=== PATIENT | female | born 1985 | race African-American/Black ===

== ENCOUNTER 2022-05-13 01:27 | Emergency (ER) | payer MEDICAID ==
[~2022-05-13] VITALS: Ht 162.6 cm; Wt 70.0 kg
[2022-05-13] MEDS ORDERED: IBUPROFEN 600MG TABLET PO ONE (02:00)
[2022-05-13] MEDS ORDERED: LIDOCAINE HCL/EPINEPHRINE 1%-EPI 1:100,000 20 ML VIAL INFIL ONE (02:00)
[2022-05-13] MEDS ORDERED: LIDOCAINE HCL/EPINEPHRINE 1%-EPI 1:100,000 30 ML VIAL INFIL NR (02:30)
[2022-05-13 06:07] VITALS: BP 132/80
== END 2022-05-13 06:27 | disposition home or self-care (01) ==
LOC: ER 01:45
DX: S61.542A Puncture wound with foreign body of left wrist, initial encounter (principal); X58.XXXA Exposure to other specified factors, initial encounter; Y93.89 Activity, other specified; Y92.89 Other specified places as the place of occurrence of the external cause; Y99.8 Other external cause status; Z20.822 Contact with and (suspected) exposure to COVID-19
CPT/HCPCS: 73110; 87426; 99284; C9803; Z7610; J3490